=== PATIENT | female | born 1965 | race Caucasian/White ===

== ENCOUNTER 2018-07-14 08:11 | Emergency (ER) | payer OTHER ==
[~2018-07-14] VITALS: Ht 170.2 cm; Wt 88.5 kg
[2018-07-14] MEDS ORDERED: KETOROLAC 60 MG/2 ML VIAL. IM ONE (08:30)
--- NOTE | 2018-07-14 08:41 | PHYS DOC ---
Past History Past Medical History: Arthritis, Diabetes, High Cholesterol, Hypertension Past Surgical History: Tubal ligation Smoking: Non-smoker Alcohol Use: None Drug Use: None Adult General Chief Complaint Chief Complaint: SHOULDER INJURY HPI HPI Patient is a 53 year old right-handed female who presents with complaining of right shoulder pain. Patient states she woke up at 2:30 because of pain in posterior of upper back and shoulders with radiation to right chest as a constant sharp pain and rated her pain 7/10. Patient denies change of pain with movement of her shoulder, recent injury, history of the same pain, shortness of breath, nausea and vomiting, recent immobilization. Patient complaining of right hand numbness without weakness. Review of Systems Review of Systems Constitutional: Denies fever or chills [] Eyes: Denies change in visual acuity, redness, or eye pain [] HENT: Denies nasal congestion or sore throat [] Respiratory: Denies cough or shortness of breath [] Cardiovascular: No additional information not addressed in HPI [] GI: Denies abdominal pain, nausea, vomiting, bloody stools or diarrhea [] : Denies dysuria or hematuria [] Musculoskeletal: Denies back pain, reports joint pain [] Integument: Denies rash or skin lesions [] Neurologic: Denies headache, focal weakness or sensory changes [] Endocrine: Denies polyuria or polydipsia [] All other systems were reviewed and found to be within normal limits, except as documented in this note. Current Medications Current Medications Current Medications Medications (Trade) Dose Ordered Sig/[facility] Start Time Stop Time Status Last Admin Dose Admin Ketorolac Tromethamine (Toradol Im) 60 mg 1X ONCE 07/14/18 08:30 07/14/18 08:31 UNV Physical Exam Physical Exam Constitutional: Well developed, well nourished, moderate distress, non-toxic appearance. [] HENT: Normocephalic, atraumatic. Eyes: PERRLA, EOMI, conjunctiva normal, no discharge. [] Neck: Normal range of motion, no tenderness, supple, no stridor. [] Cardiovascular:Heart rate regular rhythm, no murmur [] Lungs & Thorax: Bilateral breath sounds clear to auscultation [] Skin: Warm, dry, no erythema, no rash. [] Back: No tenderness, no CVA tenderness. [] Extremities: Right shoulder without deformity, edema, tenderness, normal range of motion, no neurovascular deficit, no cyanosis, no clubbing, ROM intact, no edema. [] Neurologic: Alert and oriented X 3, normal motor function, normal sensory function, no focal deficits noted. [] Psychologic: Affect normal, judgement normal, mood normal. [] EKG EKG KG interpreted by me. EKG at 0 834 showed normal sinus rhythm at rate of 82, incomplete right bundle branch block, no acute ST and T-wave abnormalities. Radiology/Procedures Radiology/Procedures [place] [id number] IMAGING REPORT Signed PATIENT: KAI NIELSEN ACCOUNT: [id number] : 1965 LOCATION: ER AGE: 53 SEX: F EXAM STATUS: REG ER ORD. PHYSICIAN: SHIRA MCCARTY MD REASON: pain PROCEDURE: CHEST AP ONLY Examination: CHEST AP ONLY History: chest pain right side 1 day Comparison/Correlation: None Findings: PA upright frontal view chest was obtained. Heart size and pulmonary vasculature are normal. No infiltrate or effusion. No pneumothorax. Bony structures are intact. Impression: No active disease. Electronically signed by: Gaurav Sultana MD (07/14/2018 9:02 AM) [facility] DICTATED AND SIGNED BY: GAURAV SULTANA MD DATE: 07/14/18 0855 CC: SHIRA MCCARTY MD; NON,STAFF ~ [address] [address] IMAGING REPORT Signed PATIENT: KAI NIELSEN ACCOUNT: [id number] : 1965 LOCATION: ER AGE: 53 SEX: F EXAM STATUS: REG ER ORD. PHYSICIAN: SHIRA MCCARTY MD REASON: pain PROCEDURE: SHOULDER 2+V RIGHT Right shoulder, 3 views, 07/14/2017: HISTORY: Shoulder pain No fracture or dislocation is identified. The periarticular soft tissues are unremarkable. IMPRESSION: No acute bony abnormality is detected. Electronically signed by: Tommy Alatorre MD (07/14/2018 9:10 AM) [facility] DICTATED AND SIGNED BY: TOMMY ALATORRE MD DATE: 07/14/18 0909 CC: SHIRA MCCRATY MD; NON,STAFF ~ Course & Med Decision Making Course & Med Decision Making Pertinent Labs and Imaging studies reviewed. (See chart for details) Evaluation of patient in ER showed 53-year-old male patient with complaining of right neck and shoulder pain since this morning. Patient had multiple cardiac risk factor and was evaluated for PE and cardiac event with unremarkable test results. X-ray of shoulder did not show acute finding. Patient treated with Toradol, fentanyl and Norflex with improvement of her pain. Plan to discharge patient home with diagnosis of musculoskeletal shoulder pain. Dragon Disclaimer Dragon Disclaimer This electronic medical record was generated, in whole or in part, using a voice recognition dictation system. Departure Departure: Impression: Primary Impression: Strain of right levator scapulae muscle Disposition: HOME, SELF-CARE (At 0940) Condition: IMPROVED Referrals: NON,STAFF (PCP) Patient Instructions: Shoulder Sprain Additional Instructions: Apply ice on the affected area Follow-up with your primary care physician in 3-5 days Return to ER if not getting better Scripts Hydrocodone Bit/Acetaminophen (NORCO 5-325 TABLET) 1 Each Tablet 1 TAB PO PRN Q6HRS PRN for PAIN, #14 TAB 0 Refills Prov: SHIRA MCCARTY MD 07/14/18 Cyclobenzaprine Hcl (CYCLOBENZAPRINE HCL) 10 Mg Tablet 1 TAB PO TID for pain, #30 TAB Prov: SHIRA MCCARTY MD 07/14/18 SHIRA MCCARTY MD Jul 14, 2018 08:41
[2018-07-14] MEDS ORDERED: KETOROLAC 30 MG/ML VIAL. IV ONE (08:45)
[2018-07-14 08:57] LABS: BASO # 0.1 x10^3/uL (0.0-0.2); BASO % 1 % (0-3); EOS # 0.1 x10^3/uL (0.0-0.7); EOS % 1 % (0-3); HEMATOCRIT 39.9 % (36.0-47.0); HEMOGLOBIN 13.4 g/dL (12.0-15.5); LYMPH # 1.6 x10^3/uL (1.0-4.8); LYMPH % 22 % (24-48); MEAN CORPUSCULAR HEMOGLOBIN 29 pg (25-35); MEAN CORPUSCULAR HGB CONC 34 g/dL (31-37); MEAN CORPUSCULAR VOLUME 87 fL (79-100); MONO # 0.5 x10^3/uL (0.0-1.1); MONO % 7 % (0-9); NEUT # 5.1 x10^3uL (1.8-7.7); NEUT % 69 % (31-73); PLATELET COUNT 300 x10^3/uL (140-400); RED BLOOD COUNT 4.61 x10^6/uL (3.50-5.40); RED CELL DISTRIBUTION WIDTH 13.6 % (11.5-14.5); WHITE BLOOD COUNT 7.4 x10^3/uL (4.0-11.0)
--- NOTE | 2018-07-14 09:06 | RAD ---
Examination: CHEST AP ONLY History: chest pain right side 1 day Comparison/Correlation: None Findings: PA upright frontal view chest was obtained. Heart size and pulmonary vasculature are normal. No infiltrate or effusion. No pneumothorax. Bony structures are intact. Impression: No active disease. Electronically signed by: Gaurav Wood MD (07/14/2018 9:02 AM) [facility]
[2018-07-14 09:11] LABS: ALBUMIN 4.1 g/dL (3.4-5.0); ALBUMIN/GLOBULIN RATIO 1.2 (1.0-1.7); GFR 58.2; POTASSIUM 4.5 mmol/L (3.5-5.1); TOTAL BILIRUBIN 0.3 mg/dL (0.2-1.0); TOTAL PROTEIN 7.5 g/dL (6.4-8.2)
--- NOTE | 2018-07-14 09:14 | RAD ---
Right shoulder, 3 views, 07/14/2017: HISTORY: Shoulder pain No fracture or dislocation is identified. The periarticular soft tissues are unremarkable. IMPRESSION: No acute bony abnormality is detected. Electronically signed by: Tommy Alatorre MD (07/14/2018 9:10 AM) [facility]
[2018-07-14] MEDS ORDERED: HYDR-3165 PO (09:35)
[2018-07-14] MEDS ORDERED: CYCL-331 PO (09:35)
[2018-07-14] MEDS ORDERED: ORPHENADRINE CITRATE 60 MG/2 ML VIAL. IV ONE (09:45)
[2018-07-14 10:05] VITALS: BP 138/81
--- NOTE | 2018-07-14 20:56 | EKG ---
[address] [address] Test Date: 2018-07-14 Test Time: 08:34:43 Pat Name: KAI NIELSEN Department: Room: Gender: F [employer]: MICA : 1965 Requested By: SHIRA MCCARTY Order Number: [id number] Reading MD: Tristian Block Measurements Intervals [place] Rate: 82 P: 39 NC: 140 QRS: 49 QRSD: 96 T: 56 QT: 390 QTc: 459 Interpretive Statements SINUS RHYTHM INCOMPLETE RIGHT BUNDLE BRANCH BLOCK Electronically Signed On 07-17-2018 17:17:25 [employer] OFFIC[employer] by Tristian Block
== END 2018-07-14 10:05 | disposition home or self-care (01) ==
LOC: ER 08:11
DX: S46.811A Strain of other muscles, fascia and tendons at shoulder and upper arm level, right arm, initial encounter (principal); M54.6 Pain in thoracic spine; R07.89 Other chest pain; M19.90 Unspecified osteoarthritis, unspecified site; E11.9 Type 2 diabetes mellitus without complications; E78.00 Pure hypercholesterolemia, unspecified; I10 Essential (primary) hypertension; X58.XXXA Exposure to other specified factors, initial encounter; Y93.89 Activity, other specified; Y92.89 Other specified places as the place of occurrence of the external cause; Y99.8 Other external cause status
CPT/HCPCS: 36415; 71045; 73030; 80053; 82550; 84484; 85025; 85379; 93005; 96374; 96375; 99284; J1885; J2360; J3010

== ENCOUNTER 2019-06-03 16:21 | Inpatient (IN) | payer OTHER ==
[~2019-06-03] VITALS: Ht 170.2 cm; Wt 89.9 kg
[~2019-06-03 16:21] MED LIST: CYCL-331 PO; HYDR-3165 PO
[2019-06-03] MEDS ORDERED: IV NORMAL SALINE 1,000ML 1,000 ML IV SCH (16:37)
[2019-06-03] MEDS ORDERED: ONDANSETRON PF 4 MG/2 ML VIAL. IVP ONE (16:45)
[2019-06-03] MEDS ORDERED: IOHEXOL 300 MG/ML 75 ML VIAL. IV ONE (16:45)
--- NOTE | 2019-06-03 16:49 | PHYS DOC ---
Past History Past Medical History: Arthritis, Diabetes, High Cholesterol, Hypertension (KHANH BAIG DO) Past Surgical History: Tubal ligation Additional Past Surgical Histo: uterine ablation, shoulder surgery, nerve ablation in back (KHANH BAIG DO) Smoking: Non-smoker Alcohol Use: None Drug Use: None (KHANH BAIG DO) Adult General Chief Complaint Chief Complaint: ABDOMINAL PAIN HPI HPI Patient is a 54-year-old female presents complaining of left-sided abdominal pain. This started more midline but slowly migrated to the left side. Pain has gotten worse since last night. Became significantly more intense at around 11:00 this morning. No relief with acetaminophen and Dulcolax. No nausea no vomiting. No blood in the stool. No dysuria or hematuria. No vaginal bleeding or discharge. Patient is a type II diabetic, performs intermittent fasting, and during her open window to eat last night had a salad with nuts on it, prior to the onset of the discomfort. There is no radiation of the discomfort. Discomfort is moderate to severe. Increased pain with movement. She reports having a colonoscopy several weeks ago, they noted diverticular disease, no evidence of diverticulitis at that time.[] (KHANH BAIG DO) Review of Systems Review of Systems Constitutional: Denies fever or chills [] Eyes: Denies change in visual acuity, redness, or eye pain [] HENT: Denies nasal congestion or sore throat [] Respiratory: Denies cough or shortness of breath [] Cardiovascular: No chest pain or palpitations[] GI: See history of present illness[] : Denies dysuria or hematuria [] Musculoskeletal: Denies back pain or joint pain [] Integument: Denies rash or skin lesions [] Neurologic: Denies headache, focal weakness or sensory changes [] Endocrine: Denies polyuria or polydipsia [] All other systems were reviewed and found to be within normal limits, except as documented in this note. (KHANH BIAG DO) Current Medications Current Medications Current Medications Medications (Trade) Dose Ordered Sig/[facility] Start Time Stop Time Status Last Admin Dose Admin Fentanyl Citrate (Fentanyl 2ml Vial) 50 mcg PRN Q15MIN PRN 06/03/19 16:45 06/04/19 16:44 Ondansetron HCl (Zofran) 4 mg 1X ONCE 06/03/19 16:45 06/03/19 16:46 UNV Sodium Chloride 1,000 ml @ 1,000 mls/hr Q1H 06/03/19 16:37 06/03/19 17:36 UNV ([facility]) Allergies Allergies Allergies Coded Allergies Type Severity Reaction Last Updated Verified codeine Allergy Intermediate gi 07/14/18 Yes ([facility]) Physical Exam Physical Exam Constitutional: Well developed, well nourished, moderate discomfort, non-toxic appearance. [] HENT: Normocephalic, atraumatic, bilateral external ears normal, oropharynx moist, no oral exudates, nose normal. [] Eyes: PERRLA, EOMI, conjunctiva normal, no discharge. [] Neck: Normal range of motion, no tenderness, supple, no stridor. [] Cardiovascular:Heart rate tachycardic with a regular rhythm, no murmur [] Lungs & Thorax: Bilateral breath sounds clear to auscultation [] Abdomen: Bowel sounds normal, soft, left-sided tenderness to palpation, increased pain with sitting up., no masses, no pulsatile masses. [] Skin: Warm, dry, no erythema, no rash. [] Back: No tenderness, no CVA tenderness. [] Extremities: No tenderness, no cyanosis, no clubbing, ROM intact, no edema. [] Neurologic: Alert and oriented X 3, normal motor function, normal sensory function, no focal deficits noted. [] Psychologic: Affect normal, judgement normal, mood normal. [] ([facility]) Current Patient Data Lab Results Laboratory Tests Test 06/03/19 16:33 POC Urine HCG, Qualitative hcg negative (Negative) ([facility]) EKG EKG [] ([facility]) Radiology/Procedures Radiology/Procedures PROCEDURE: CT ABD PELV W/ IV CONTRST ONLY Study: CT abdomen/pelvis with intravenous contrast Indication: Left-sided abdominal pain. Comparison: None. Technique: Helical CT imaging performed of the abdomen and pelvis after the intravenous administration of 75 cc Omnipaque 300 contrast. Sagittal and coronal reformats were obtained. One or more of the following individualized dose reduction techniques were utilized for this examination: 1. Automated exposure control 2. Adjustment of the mA and/or kV according to patient size 3. Use of iterative reconstruction technique. Findings: Hepatic steatosis. Nonobstructing intrarenal stone on the right at the mid aspect of the kidney measuring 2.5 mm. Unremarkable left kidney. Unremarkable gallbladder, pancreas, spleen and adrenal glands. The urinary bladder is mostly collapsed. Rounded 1.9 cm hyperattenuating mass off the anterior aspect of the lower uterine body most compatible with a fibroid. No suspicious adnexal abnormality. Colonic diverticulosis with diverticulitis involving the junction between the descending and sigmoid colon, image 57 series 2. Extensive surrounding inflammatory changes in correspondingly there is a small amount of free fluid within the deep pelvis. No complicating features such as free air or abscess formation. Mild volume well-formed stool mostly distributed throughout the proximal half of the colon. The appendix is normal. Nonobstructed small bowel. Mild air and fluid distention of small bowel loops within the lower abdomen and pelvis could represent a mild reactive ileus. The stomach is incompletely evaluated due to partial collapse and lack of oral contrast but is without discrete abnormality. Unremarkable major vascular structures. No lymphadenopathy. Degenerative lumbar levocurvature with the apex at L3-L4. Severe disc space collapse lateralized to the right at L3-L4 and mostly lateralized to the left at L4-L5 with marked endplate sclerosis as well as endplate cystic changes. Disc osteophyte complex at L3-L4 with probable mild central canal stenosis but with narrowing of the right lateral recess. Facet degeneration is most pronounced on the left at L4-L5 where there is severe bony neural foraminal encroachment. Less pronounced bony neural foraminal encroachment on the right at L3-L4. Impression: 1. Colonic diverticulosis complicated by diverticulitis at the junction between the descending and sigmoid colon. Extensive surrounding inflammatory changes and a small amount of free pelvic fluid however there is no perforation or abscess formation. 2. Hepatic steatosis. 3. Nonobstructing intrarenal stone on the right measuring 2.5 mm. 4. Advanced discogenic arthrosis at L3-L4 and L4-L5. In conjunction with facet degeneration, severe osseous neural foraminal encroachment on the left at L4-L5. Mild appearing central canal stenosis at L3-L4 as well as right lateral recess stenosis.[] (KHANH BAIG DO) Course & Med Decision Making Course & Med Decision Making Pertinent Labs and Imaging studies reviewed. (See chart for details) Urgency department course: Patient arrived, was placed in bed, and tolerated exam well. She was given IV fluids as well as pain medicine which improved her discomfort as well as her heart rate. She was transported to and from radiology with any complications. After return of the imaging findings, these were discussed with the patient who voiced understanding. Options to include admission versus discharge were discussed with the patient. She chooses to go home and take oral pain medicine, antiemetics, and antibiotics. All questions were answered. She was discharged in improved condition. Medical decision making: Patient appears to have diverticulitis without evidence of obstruction or perforation. No evidence of oral intake intolerance. No evidence of significant electrolyte abnormality.[] (KHANH BAIG DO) Course & Med Decision Making The patient wanted to go home, but she was still having quite a bit of pain and was feeling not well. Her blood pressure was elevated due to her discomfort. We gave her 0.2 of clonidine and I talked with the patient. I told her that we'll be in her best interest to be admitted. 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 I reassured her that the business would keep running with her. She then agreed to admission for further antibiotics and pain control. I spoke with Dr. Haque and he accepted her for admission. (ANETA JAIMES DO) Dragon Disclaimer Dragon Disclaimer This electronic medical record was generated, in whole or in part, using a voice recognition dictation system. (KHANH BAIG DO) Departure Departure: Impression: Primary Impression: Diverticulitis Disposition: ADMITTED INPATIENT Condition: STABLE Referrals: PCP,UNKNOWN (PCP) Patient Instructions: Diverticulitis Additional Instructions: Follow up with your regular doctor in 2 days. Do not eat any more nuts, seeds, or popcorn. Return to the ER if unable to tolerate liquids, pain out of control, blood in stool or emesis, or any other concerns. KHANH BAIG DO Jun 03, 2019 16:49 ANETA JAIMES DO Jun 03, 2019 19:45
[2019-06-03 16:53] LABS: BASO % 0 % (0-3); EOS % 0 % (0-3); HEMATOCRIT 39.2 % (36.0-47.0); LYMPH # 2.2 x10^3/uL (1.0-4.8); LYMPH % 14 % (24-48); MEAN CORPUSCULAR HEMOGLOBIN 29 pg (25-35); MEAN CORPUSCULAR HGB CONC 33 g/dL (31-37); MEAN CORPUSCULAR VOLUME 87 fL (79-100); MONO % 6 % (0-9); NEUT # 12.4 x10^3uL (1.8-7.7); NEUT % 79 % (31-73); PLATELET COUNT 305 x10^3/uL (140-400); RED BLOOD COUNT 4.52 x10^6/uL (3.50-5.40); RED CELL DISTRIBUTION WIDTH 13.2 % (11.5-14.5); WHITE BLOOD COUNT 15.6 x10^3/uL (4.0-11.0)
[2019-06-03 17:02] LABS: BACTERIA,URINE 0 /HPF (0-FEW); BILIRUBIN,URINE NEG (NEG); CLARITY,URINE CLEAR; COLOR,URINE STRAW; GLUCOSE,URINE NEG (NEG); NITRITE,URINE NEG (NEG); RBC,URINE 0 /HPF (0-2); SQUAMOUS EPITHELIAL CELL,UR MOD /LPF; UROBILINOGEN,URINE 0.2 mg/dL (0.2 mg/dL); WBC,URINE 0 /HPF (0-4)
[2019-06-03 17:03] LABS: ALBUMIN 4.3 g/dL (3.4-5.0); ALBUMIN/GLOBULIN RATIO 1.2 (1.0-1.7); CALCIUM 9.6 mg/dL (8.5-10.1); CREATININE 0.9 mg/dL (0.6-1.0); GFR 65.5; POTASSIUM 4.1 mmol/L (3.5-5.1); TOTAL BILIRUBIN 0.5 mg/dL (0.2-1.0); TOTAL PROTEIN 7.9 g/dL (6.4-8.2)
--- NOTE | 2019-06-03 17:54 | RAD ---
Study: CT abdomen/pelvis with intravenous contrast Indication: Left-sided abdominal pain. Comparison: None. Technique: Helical CT imaging performed of the abdomen and pelvis after the intravenous administration of 75 cc Omnipaque 300 contrast. Sagittal and coronal reformats were obtained. One or more of the following individualized dose reduction techniques were utilized for this examination: 1. Automated exposure control 2. Adjustment of the mA and/or kV according to patient size 3. Use of iterative reconstruction technique. Findings: Hepatic steatosis. Nonobstructing intrarenal stone on the right at the mid aspect of the kidney measuring 2.5 mm. Unremarkable left kidney. Unremarkable gallbladder, pancreas, spleen and adrenal glands. The urinary bladder is mostly collapsed. Rounded 1.9 cm hyperattenuating mass off the anterior aspect of the lower uterine body most compatible with a fibroid. No suspicious adnexal abnormality. Colonic diverticulosis with diverticulitis involving the junction between the descending and sigmoid colon, image 57 series 2. Extensive surrounding inflammatory changes in correspondingly there is a small amount of free fluid within the deep pelvis. No complicating features such as free air or abscess formation. Mild volume well-formed stool mostly distributed throughout the proximal half of the colon. The appendix is normal. Nonobstructed small bowel. Mild air and fluid distention of small bowel loops within the lower abdomen and pelvis could represent a mild reactive ileus. The stomach is incompletely evaluated due to partial collapse and lack of oral contrast but is without discrete abnormality. Unremarkable major vascular structures. No lymphadenopathy. Degenerative lumbar levocurvature with the apex at L3-L4. Severe disc space collapse lateralized to the right at L3-L4 and mostly lateralized to the left at L4-L5 with marked endplate sclerosis as well as endplate cystic changes. Disc osteophyte complex at L3-L4 with probable mild central canal stenosis but with narrowing of the right lateral recess. Facet degeneration is most pronounced on the left at L4-L5 where there is severe bony neural foraminal encroachment. Less pronounced bony neural foraminal encroachment on the right at L3-L4. Impression: 1. Colonic diverticulosis complicated by diverticulitis at the junction between the descending and sigmoid colon. Extensive surrounding inflammatory changes and a small amount of free pelvic fluid however there is no perforation or abscess formation. 2. Hepatic steatosis. 3. Nonobstructing intrarenal stone on the right measuring 2.5 mm. 4. Advanced discogenic arthrosis at L3-L4 and L4-L5. In conjunction with facet degeneration, severe osseous neural foraminal encroachment on the left at L4-L5. Mild appearing central canal stenosis at L3-L4 as well as right lateral recess stenosis. Electronically signed by: JODI VERNON MD (06/03/2019 5:51 PM) [facility]
[2019-06-03] MEDS ORDERED: SULF1TAB24 PO (18:08)
[2019-06-03] MEDS ORDERED: METR-34 PO (18:08)
[2019-06-03] MEDS ORDERED: MELO7.5T29 PO (18:08)
[2019-06-03] MEDS ORDERED: ONDA4TAB7 PO (18:08)
[2019-06-03] MEDS ORDERED: HYDR-3165 PO (18:08)
[2019-06-03] MEDS ORDERED: HYDROcodone/APAP 5/325MG 1 TAB TABLET PO ONE (18:15)
[2019-06-03] MEDS ORDERED: metroNIDAZOLE 500 MG TABLET PO ONE (18:15)
[2019-06-03] MEDS ORDERED: SMZ/TMP 800/160MG TABLET. PO ONE (18:15)
[2019-06-03] MEDS ORDERED: IBUPROFEN 600 MG TABLET. PO ONE (18:15)
[2019-06-03] MEDS ORDERED: ONDANSETRON ODT 4 MG TAB.RAPDIS PO ONE (18:15)
[2019-06-03] MEDS ORDERED: METOCLOPRAMIDE HCL 10 MG/2 ML VIAL. IVP ONE (18:45)
[2019-06-03] MEDS ORDERED: cloNIDine HCL 0.1 MG TABLET PO ONE (18:45)
[2019-06-03] MEDS ORDERED: diphenhydrAMINE 50 MG/ML VIAL IVP ONE (18:45)
[2019-06-03] MEDS ORDERED: ONDANSETRON PF 4 MG/2 ML VIAL. IV PRN (19:15)
[2019-06-03] MEDS ORDERED: ACETAMINOPHEN 325 MG TABLET PO PRN (19:15)
[2019-06-03] MEDS ORDERED: IV NORMAL SALINE 50ML 50 ML ONE (19:28)
[2019-06-03] MEDS ORDERED: cefTRIAXone SODIUM 1 GM VIAL ONE (19:28)
[2019-06-03 20:31] VITALS: BP 96/61
[2019-06-03 23:00] VITALS: BP 120/66
[2019-06-04] MEDS: IV NORMAL SALINE 1,000ML 1,000 ML IV SCH ×2 (03:30→09:29)
[2019-06-04] MEDS ORDERED: ROSU10TA2 PO (03:42)
[2019-06-04] MEDS ORDERED: BUPR300T3 PO (03:42)
[2019-06-04] MEDS ORDERED: METF500T16 PO (03:42)
[2019-06-04] MEDS ORDERED: LOSA50TA14 PO (03:42)
--- NOTE | 2019-06-04 04:18 | NUR ---
The patient, KAI NIELSEN, 54 y/o, F admitted by JANET MOLINA MD, was given written information regarding hospital policies, unit procedures and contact persons. Valuables were checked and noted. PT presented with abdominal pain, admitted for diverticulitis. Reviewed PT's PMH, PSH, SH, FH, and medications. with PT at the time of admission.
[2019-06-04 06:04] VITALS: BP 119/76
[2019-06-04] MEDS ORDERED: buPROPion XL 300 MG TAB.ER.24H. PO SCH (09:00)
[2019-06-04] MEDS ORDERED: metFORMIN 500 MG TABLET PO SCH (09:00)
[2019-06-04 09:05] LABS: BASO % 1 % (0-3); EOS % 1 % (0-3); HEMATOCRIT 31.7 % (36.0-47.0); HEMOGLOBIN 10.4 g/dL (12.0-15.5); LYMPH # 1.2 x10^3/uL (1.0-4.8); LYMPH % 17 % (24-48); MEAN CORPUSCULAR HEMOGLOBIN 29 pg (25-35); MEAN CORPUSCULAR HGB CONC 33 g/dL (31-37); MEAN CORPUSCULAR VOLUME 87 fL (79-100); MONO # 0.5 x10^3/uL (0.0-1.1); MONO % 8 % (0-9); NEUT # 5.1 x10^3uL (1.8-7.7); NEUT % 74 % (31-73); PLATELET COUNT 209 x10^3/uL (140-400); RED BLOOD COUNT 3.64 x10^6/uL (3.50-5.40); WHITE BLOOD COUNT 6.9 x10^3/uL (4.0-11.0)
[2019-06-04 09:27] LABS: ALBUMIN 3.2 g/dL (3.4-5.0); ALBUMIN/GLOBULIN RATIO 1.1 (1.0-1.7); CREATININE 0.8 mg/dL (0.6-1.0); POTASSIUM 3.8 mmol/L (3.5-5.1); TOTAL BILIRUBIN 0.4 mg/dL (0.2-1.0); TOTAL PROTEIN 6.2 g/dL (6.4-8.2)
[2019-06-04 10:50] VITALS: BP 108/71
[2019-06-04] MEDS ORDERED: SUMAtriptan SUCCINATE 50 MG TABLET PO ONE (12:15)
[2019-06-04 14:59] VITALS: BP 133/85
--- NOTE | 2019-06-04 15:00 | NUR ---
Dr Haque here to see patient, prn fentanyl increased due to pain being 8/10. patient continues to have pain to left side of abdomen. Patient has remained on ice chips and sips of water throughout the day, tolerating well. Also complains of having a migraine that states she gets when at home. Believes it is due to not having her normal doses of caffeine.
[2019-06-04] MEDS ORDERED: DEXTROSE 50% 25 GM / 50ML DISP.SYRIN. IV PRN (16:00)
[2019-06-04] MEDS: INSULIN LISPRO 300 UNITS/3 ML VIAL. SQ SCH (16:44)
[2019-06-04] MEDS: buPROPion XL 300 MG TAB.ER.24H. PO SCH ×2 (17:00→20:53)
--- NOTE | 2019-06-04 18:17 | HP ---
ADMIT DATE: 06/03/2019 HISTORY OF PRESENT ILLNESS: The patient is a 54-year-old female patient, who came to the Emergency Room complaining of left lower quadrant pain that started about 3 days ago. The pain started in the midline, but slowly migrated to the left side. Pain has gotten worse since last night before admission, became significantly more intense at around 11 yesterday morning, no relief with acetaminophen or Dulcolax. No nausea or vomiting. No blood in the stool. No dysuria or hematuria. No vaginal bleeding or discharge. The patient is type 2 diabetic, performs intermittent fasting and during her open window to eat last night had salad, ____ prior to the onset of this discomfort. There is no radiation of discomfort. Discomfort is moderate to severe, increased pain with movement. She apparently had had colonoscopy at the beginning of April, was noted to have diverticular disease. At that time, she had no evidence of diverticulitis. She has had some polyps removed. She was evaluated in the Emergency Room, was found to have leukocytosis with a white cell count of 15,600. Has had a CT scan of the abdomen and pelvis, which basically showed that she has colonic diverticulosis, complicated by diverticulitis at the junction between the descending and sigmoid colon, extensive surrounding inflammatory changes and small amount of free pelvic fluid; however, there is no perforation or abscess formation. She has hepatic steatosis, nonobstructing intrarenal stones on the right measuring 2.5 mm. 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 She has also mild appearing central canal stenosis at L3-L4 as well as right lateral recess stenosis. She was admitted, started on IV Rocephin and clear liquid diet together with fentanyl. PAST MEDICAL HISTORY: Significant for type 2 diabetes mellitus, hypertension and hyperlipidemia. She has had also recent episode of pneumonia. PAST SURGICAL HISTORY: Significant for tubal ligation, uterine ablation, laser ablation of her lumbar spine. She underwent esophagogastroduodenoscopy and colonoscopy. ALLERGIES: She is allergic to CODEINE and LISINOPRIL. MEDICATIONS: She is currently on following medications: She is on Crestor 10 mg at bedtime, losartan potassium 50 mg at bedtime, Wellbutrin-XL 300 mg once a day, metformin 1000 mg p.o. b.i.d. FAMILY HISTORY: She has 2 brothers and 1 sister. One brother and 1 sister older and 1 brother is younger and all have diabetes. Her father at age of 66 because of pneumonia, was alcoholic. Her mom is still alive at the age of 79. SOCIAL HISTORY: She is , has 2 daughters. She never smoked, does not drink alcohol or use recreational drugs. 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 REVIEW OF SYSTEMS: The patient denied any blurring of vision, cataract, glaucoma or macular degeneration. Denied any earache, tinnitus or sensorineural deafness. Denied any nosebleeds. Denied any nausea or vomiting. She is constipated. Denied any diarrhea. Denied any hematemesis, melena or hematochezia. Denied any dysuria, frequency or hematuria. Denied any chest pain, shortness of breath, orthopnea or paroxysmal nocturnal dyspnea. PHYSICAL EXAMINATION: GENERAL: When I examined her, she looked pale, but no jaundice. She looked well and was clearly in no apparent respiratory distress. No pallor, jaundice, cyanosis or thyromegaly. No jugular venous distention. No limb edema. VITAL SIGNS: Her heart rate was 87, blood pressure 119/76, temperature was 98.2, respiratory rate was 18 and oxygen saturation was 95% on room air. HEAD, EYES, EARS, NOSE AND THROAT: Showed normocephalic, atraumatic. NECK: Supple. HEART: Showed normal first and second heart sounds. No gallop or murmur. CHEST: Clear to auscultation. No crepitation or rhonchi. ABDOMEN: Distended, soft with tenderness mostly in the left lower quadrant. There is no guarding or rigidity. No organomegaly. All hernial orifice intact. Bowel sounds normal. NEUROLOGIC: She was grossly intact. LABORATORY DATA: Lab work on admission showed a white cell count 15,600, hemoglobin 13, hematocrit 39, MCV 87, and platelet count 305,000. Her chemistry showed a serum sodium 137, potassium 4, chloride 99, bicarbonate 27, anion gap of 11, BUN 9, creatinine 0.9, estimated GFR was 65 mL per minute. Her glucose 118, calcium was 9.6. Total bilirubin, AST, ALT, alkaline phosphatase were normal. Total protein was 7.9, albumin was 4.3 and lipase was 51. Her urinalysis was essentially unremarkable. Her urine test was negative. IMAGING STUDIES: Her CT scan of the abdomen and pelvis showed that she has colonic diverticulosis, complicated by diverticulitis at the junction between the descending and sigmoid colon. Extensive surrounding inflammatory changes and small amount of free pelvic fluid; however, there is no perforation or abscess formation. PLAN: My plan is to switch her antibiotic to ciprofloxacin as well as Flagyl and change her medication to morphine and decide on further management accordingly. JANET MOLINA MD DR: ALIS/meka JOB#: [id number] / [id number]
[2019-06-04] MEDS ORDERED: diphenhydrAMINE 50 MG/ML VIAL IVP ONE (19:00)
--- NOTE | 2019-06-04 19:36 | NUR ---
Patient complained of migraine this evening, states benadryl worked. Also states she would like to advance her diet and try to eat. Soft diet ordered.
[2019-06-04 20:04] VITALS: BP 124/83
[2019-06-04] MEDS: CIPROFLOXACIN 400MG PREMIX 200 ML IV SCH (20:58)
[2019-06-04] MEDS ORDERED: LOSARTAN 50 MG TABLET. PO SCH (21:00)
[2019-06-04] MEDS ORDERED: ATORVASTATIN CALCIUM 20 MG TABLET PO SCH (21:00)
[2019-06-04 22:48] VITALS: BP 135/74
[2019-06-05 04:51] VITALS: BP 130/81
[2019-06-05] MEDS: IV NORMAL SALINE 1,000ML 1,000 ML IV SCH (06:30)
[2019-06-05 07:44] LABS: HEMATOCRIT 33.1 % (36.0-47.0); RED BLOOD COUNT 3.81 x10^6/uL (3.50-5.40); RED CELL DISTRIBUTION WIDTH 12.9 % (11.5-14.5); WHITE BLOOD COUNT 7.8 x10^3/uL (4.0-11.0)
[2019-06-05 07:51] LABS: ALBUMIN 3.2 g/dL (3.4-5.0); CALCIUM 8.2 mg/dL (8.5-10.1); CREATININE 0.8 mg/dL (0.6-1.0); POTASSIUM 3.9 mmol/L (3.5-5.1); TOTAL BILIRUBIN 0.3 mg/dL (0.2-1.0); TOTAL PROTEIN 6.5 g/dL (6.4-8.2)
[2019-06-05] MEDS ORDERED: metFORMIN 500 MG TABLET PO SCH (08:00)
[2019-06-05] MEDS: INSULIN LISPRO 300 UNITS/3 ML VIAL. SQ SCH ×2 (08:00→11:53)
[2019-06-05] MEDS: buPROPion XL 300 MG TAB.ER.24H. PO SCH (08:43)
[2019-06-05] MEDS: CIPROFLOXACIN 400MG PREMIX 200 ML IV SCH (08:44)
[2019-06-05] MEDS ORDERED: FLU VAX QS 2019-20 (36MOS+)/PF 0.5 ML SYRINGE. VAX IM ONE (09:00)
[2019-06-05] MEDS ORDERED: LACTOBACILLUS RHAMNOSUS GG 1 CAPSULE. PO SCH (09:00)
[2019-06-05 10:37] VITALS: BP 112/70
[2019-06-05] MEDS ORDERED: METR500T PO (13:20)
[2019-06-05] MEDS ORDERED: CIPR500T94 PO (13:20)
[2019-06-05] MEDS ORDERED: HYDR-2155 PO (13:21)
--- NOTE | 2019-06-05 13:48 | NUR ---
NSG NOTE; DISCHARGE VERBAL AND WRITTEN DISCHARGE INSTRUCTIONS GIVEN TO PT WITH VERBAL UNDERSTANDING WRITTEN RX X3 GIVEN TO PT DISCHARGED TO HOME AT 1345 VIA AMB ACCOMP BY FAMILY
--- NOTE | 2019-06-05 14:55 | DS ---
DATE OF DISCHARGE: 06/05/2019 HOSPITAL COURSE: The patient is a 54-year-old female patient who was admitted with a complaint of left lower quadrant pain. She was extensively evaluated in the Emergency Room, was found to have acute sigmoid diverticulitis at the junction between the descending and sigmoid colon with extensive surrounding inflammatory changes with small amount of free pelvic fluid; however, there is no perforation or abscess formation. She was started on IV Cipro and Flagyl and she did very well. Her white cell count came down nicely. She has had no further pain, no nausea, no vomiting, has been tolerating her diet and decision was made to discharge her home to continue with oral antibiotic. PHYSICAL EXAMINATION: GENERAL: When I examined her, she looked pale, no jaundice, cyanosis or thyromegaly. No jugular venous distention. No lower limb edema. VITAL SIGNS: Her heart rate was 78, blood pressure was 112/70, temperature 97.4, respiratory rate 12 and oxygen saturation was 96%. HEAD, EYES, EARS, NOSE AND THROAT: Normocephalic, atraumatic. NECK: Supple. HEART: Normal first and second heart sounds. No gallop or murmur. CHEST: Clear to auscultation. No crepitation or rhonchi. ABDOMEN: Distended, soft, nontender. NEUROLOGIC: She is awake, alert, responding appropriately. All her cranial nerves intact. EXTREMITIES: She moves extremities without difficulty. She ambulates without assistance or assistive devices. LABORATORY DATA: Showed a white cell count is 7800, hemoglobin 11, hematocrit 33, MCV 87, and platelet count 139,000. Her chemistry showed a serum sodium 140, potassium 3.9, chloride 105, bicarbonate 23, anion gap of 12, BUN 6, creatinine 0.8, estimated GFR was 75 mL per minute. Her glucose 123, calcium was 8.2. Total bilirubin, AST, ALT, alkaline phosphatase were normal. Total protein was 6.5, albumin was 3.2. Urinalysis was unremarkable. DISCHARGE MEDICATIONS: The patient was discharged home to continue on ciprofloxacin 500 mg twice a day for 7 days and Flagyl 500 mg 3 times a day for 7 days. She was also discharged on hydrocodone/APAP 5/325 one tablet every 6 hours as needed, Wellbutrin-XL 300 mg once a day, losartan potassium 50 mg at bedtime, metformin 500 mg twice a day, Crestor 10 mg at bedtime. FINAL DISCHARGE DIAGNOSES: Acute sigmoid diverticulitis, resolving. Other medical problems include type 2 diabetes, hypertension, hyperlipidemia. JANET MOLINA MD DR: ALIS/meka JOB#: [id number] / [id number]
== END 2019-06-05 13:45 | disposition home or self-care (01) | DRG 392 ==
LOC: ER 16:21 → 1 SOUTH 19:00 → ER 20:15
PROVIDERS: ADMIT Internal Medicine; ATTEND Internal Medicine
DX: K57.32 Diverticulitis of large intestine without perforation or abscess without bleeding (principal); R65.10 Systemic inflammatory response syndrome (SIRS) of non-infectious origin without acute organ dysfunction; E11.9 Type 2 diabetes mellitus without complications; E78.00 Pure hypercholesterolemia, unspecified; E78.5 Hyperlipidemia, unspecified; I10 Essential (primary) hypertension; M19.90 Unspecified osteoarthritis, unspecified site; M48.061 Spinal stenosis, lumbar region without neurogenic claudication; N20.0 Calculus of kidney; Z83.3 Family history of diabetes mellitus; Z98.51 Tubal ligation status; Z79.899 Other long term (current) drug therapy; Z88.8 Allergy status to other drugs, medicaments and biological substances
CPT/HCPCS: 36415; 74177; 80053; 81001; 81025; 82947; 83690; 85025; 85027; 90471; 90686; 96361; 96365; 96375; J0696; J0744; J1200; J1815; J2405; J2765; J3010; J3490; Q0162; Q9967; 99285-25; J7030

== ENCOUNTER 2021-11-12 08:47 | Emergency (ER) | payer OTHER ==
[~2021-11-12] VITALS: Ht 170.2 cm; Wt 92.5 kg
[~2021-11-12 08:47] MED LIST changes: +BUPR300T3 PO; +CIPR500T94 PO; -CYCL-331 PO; +CYCL10TA19 PO; +HYDR-2155 PO; +LOSA50TA14 PO; +MELO7.5T29 PO; +METF500T16 PO; +METR-34 PO; +METR500T PO; +ONDA4TAB7 PO; +ROSU10TA2 PO; +SULF1TAB24 PO
--- NOTE | 2021-11-12 09:10 | PHYS DOC ---
Past History Past Medical History: Diabetes, Hypertension Past Surgical History: Tubal ligation Additional Past Surgical Histo: uterine ablation, shoulder surgery, nerve ablation in back Smoking: Non-smoker Alcohol Use: None Drug Use: None General Adult EDM: Chief Complaint: ABDOMINAL PAIN HPI: HPI: 56-year-old female presents with right-sided abdominal pain. The patient started the pain last night. It subsided for the most part and so she was able to sleep. This morning, the pain has returned. She describes it as a cramping/twisting pain in her right flank. It is an 8 out of 10. Patient has a history of diverticulitis. She has never had a kidney stone. She denies dysuria or increased urinary frequency. The patient has been feeling generally under the weather for another 24 hours before this and has not been eating. She has been trying to stay hydrated. She has type 2 diabetes. Blood sugars under 200. She denies fever or chills. Review of Systems: Review of Systems: Constitutional: Denies fever or chills Eyes: Denies change in visual acuity HENT: Denies nasal congestion or sore throat Respiratory: Denies cough or shortness of breath Cardiovascular: Denies chest pain or edema GI: Right-sided abdominal pain, nausea. Denies vomiting, bloody stools or diarrhea : Denies dysuria Musculoskeletal: Denies back pain or joint pain Integument: Denies rash Neurologic: Denies headache, focal weakness or sensory changes Endocrine: Denies polyuria or polydipsia Lymphatic: Denies swollen glands Psychiatric: Denies depression or anxiety Current Medications: Current Meds: Current Medications Medications (Trade) Dose Ordered Sig/Divina Start Time Stop Time Status Last Admin Dose Admin Iohexol (Omnipaque 300 Mg/ml) 75 ml 1X ONCE 11/12/21 09:15 11/12/21 09:16 UNV Morphine Sulfate (Morphine 4mg Syringe) 4 mg 1X ONCE 11/12/21 09:15 11/12/21 09:16 UNV Ondansetron HCl (Zofran) 4 mg 1X ONCE 11/12/21 09:15 11/12/21 09:16 UNV Allergies: Allergies: Allergies Coded Allergies Type Severity Reaction Last Updated Verified codeine Allergy Intermediate gi 07/14/18 Yes Physical Exam: PE: Constitutional: Well developed, well nourished, obese, no acute distress, non- toxic appearance. [] HENT: Normocephalic, atraumatic, bilateral external ears normal, oropharynx moist, no oral exudates, nose normal. [] Eyes: PERRLA, EOMI, conjunctiva normal, no discharge. [] Neck: Normal range of motion, no tenderness, supple, no stridor. [] Cardiovascular: Heart rate regular rhythm, no murmur [] Lungs & Thorax: Bilateral breath sounds clear to auscultation [] Abdomen: Bowel sounds normal, soft, no tenderness, no masses, no pulsatile masses. [] Skin: Warm, dry, no erythema, no rash. [] Back: No tenderness, right CVA tenderness. [] Extremities: No tenderness, no cyanosis, no clubbing, ROM intact, no edema. [] Neurologic: Alert and oriented X 3, normal motor function, normal sensory function, no focal deficits noted. [] Psychologic: Affect normal, judgement normal, mood normal. [] EKG: EKG: [] Radiology/Procedures: Radiology/Procedures: [] Impressions: CT ABDOMEN+PELVIS W History: RUQ pain RADIATES TO BACK. Comparison: 06/03/2019 Technique: After administration of intravenous contrast, helical CT of the abdomen and pelvis was performed from the lung bases through the ischial tuberosities. Coronal and sagittal reconstructions were obtained. 60 mL of Omni paque 350 were used. One or more of the following dose reduction techniques were utilized: Automated exposure control (AEC), Adjustment of mA and/or kV according to patient size, Use of iterative reconstruction technique such as ASiR, CT scan done according to ALARA and image gently/image wisely Abdomen Findings: The visualized lung bases are clear. Diffuse hepatic steatosis. The gallbladder, pancreas, spleen, and bilateral adrenal glands are normal. Symmetric renal enhancement. Nonobstructive right renal 5 mm calculus. There is no hydronephrosis. The visualized loops of small bowel are normal. Extensive colonic diverticulos is, with mild pericolic inflammation along the mid descending colon (series 2 images 39-44). There is no evidence of bowel obstruction. Appendix is normal. There is no mesenteric or retroperitoneal adenopathy. The abdominal aorta is normal in caliber. Pelvis Findings: Urinary bladder is decompressed. Uterus is present. No pelvic free fluid. There is no pelvic or inguinal adenopathy. Degenerative changes of the spine, with severe degenerative disc disease at L3-4 on the right and L4-5 on the left. Mild left convex lumbar curvature. IMPRESSION: 1. Colonic diverticulosis with mild pericolic inflammation along the mid desce nding colon, which may represent acute diverticulitis. No fluid collection or free air. 2. Nonobstructive right renal 5 mm calculus. 3. Hepatic steatosis. Electronically signed by: Jurgen Dill MD (11/12/2021 10:30 AM) [id number] DICTATED AND SIGNED BY: JURGEN DILL MD DATE: 11/12/21 1022 CC: ERINN JI; ANETA JAIMES DO ~ Heart Score: C/O Chest Pain: N/A Risk Factors: Risk Factors: DM, Current or recent (<one month) smoker, HTN, HLP, family history of CAD, obesity. Risk Scores: Score 0 - 3: 2.5% MACE over next 6 weeks - Discharge Home Score 4 - 6: 20.3% MACE over next 6 weeks - Admit for Clinical Observation Score 7 - 10: 72.7% MACE over next 6 weeks - Early Invasive Strategies Course & Med Decision Making: Course & Med Decision Making Pertinent Labs and Imaging studies reviewed. (See chart for details) The patient's labs and urinalysis are unremarkable. I have given her morphine and Dilaudid for discomfort. She appears to have diverticulitis on CT scan. I will treat her with pain medication and Augmentin for 7 days. Recent literature has shown antibiotic treatment is not always necessary. I will leave it up to the patient if she wants to wait a day or 2 to see if her symptoms improve prior to starting her antibiotics. She is stable for discharge at this time. [] Jaqueline Disclaimer: Jaqueline Disclaimer: This electronic medical record was generated, in whole or in part, using a voice recognition dictation system. Departure Departure: Impression: Primary Impression: Acute diverticulitis Disposition: HOME / SELF CARE / HOMELESS Condition: STABLE Referrals: ERINN JI (PCP) Patient Instructions: Diverticulitis, Cxni-eb-Mete Scripts Ondansetron (ONDANSETRON ODT) 4 Mg Tab.rapdis 1 TAB PO PRN Q6-8HRS PRN for VOMITING, #16 TAB Prov: ANETA JAIMES DO 11/12/21 Hydrocodone/Acetaminophen (Hydrocodone-Acetamin 5-325 mg) 1 Each Tablet 1-2 EACH PO Q6HRS PRN for PAIN, #15 TAB Prov: ANETA JAIMES DO 11/12/21 ANETA JAIMES DO November 12, 2021 09:10
[2021-11-12] MEDS ORDERED: IOHEXOL 300 MG/ML 75 ML VIAL. IV ONE (09:15)
[2021-11-12] MEDS ORDERED: CONTRAST GIVEN. MC PRN (09:15)
[2021-11-12] MEDS ORDERED: MORPHINE SULFATE 4 MG/ML DISP.SYRIN. IV ONE (09:15)
[2021-11-12] MEDS ORDERED: ONDANSETRON PF 4 MG/2 ML VIAL. IVP ONE ×2 (09:15→11:00)
[2021-11-12 09:22] LABS: BASO % 1 % (0-3); EOS % 0 % (0-3); HEMATOCRIT 37.3 % (36.0-47.0); HEMOGLOBIN 12.3 g/dL (12.0-15.5); LYMPH # 1.7 x10^3/uL (1.0-4.8); LYMPH % 28 % (24-48); MEAN CORPUSCULAR HEMOGLOBIN 28 pg (25-35); MEAN CORPUSCULAR HGB CONC 33 g/dL (31-37); MEAN CORPUSCULAR VOLUME 84 fL (79-100); MONO # 0.7 x10^3/uL (0.0-1.1); MONO % 11 % (0-9); NEUT # 3.6 x10^3uL (1.8-7.7); NEUT % 60 % (31-73); PLATELET COUNT 302 x10^3/uL (140-400); RED BLOOD COUNT 4.43 x10^6/uL (3.50-5.40); RED CELL DISTRIBUTION WIDTH 14.3 % (11.5-14.5)
[2021-11-12 09:31] LABS: CALCIUM 9.2 mg/dL (8.5-10.1); GFR 57.6; POTASSIUM 4.1 mmol/L (3.5-5.1)
[2021-11-12 09:37] LABS: ALBUMIN 3.9 g/dL (3.4-5.0); ALBUMIN/GLOBULIN RATIO 1.1 (1.0-1.7); TOTAL BILIRUBIN 0.2 mg/dL (0.2-1.0); TOTAL PROTEIN 7.5 g/dL (6.4-8.2)
[2021-11-12 09:38] LABS: CLARITY,URINE CLEAR; COLOR,URINE YELLOW; GLUCOSE,URINE NEG (NEG)
[2021-11-12 09:39] LABS: BACTERIA,URINE FEW /HPF (0-FEW); NITRITE,URINE NEG (NEG); SQUAMOUS EPITHELIAL CELL,UR MOD /LPF; UROBILINOGEN,URINE 0.2 mg/dL (0.2 mg/dL)
[2021-11-12] MEDS ORDERED: HYDROmorphone PF 1 MG/ML DISP.SYRIN ONE (09:51)
[2021-11-12] MEDS ORDERED: HYDROmorphone PF 1 MG/ML DISP.SYRIN IVP ONE (10:00)
[2021-11-12 10:30] VITALS: BP 118/70
--- NOTE | 2021-11-12 10:33 | RAD ---
CT ABDOMEN+PELVIS W History: RUQ pain RADIATES TO BACK. Comparison: 06/03/2019 Technique: After administration of intravenous contrast, helical CT of the abdomen and pelvis was per formed from the lung bases through the ischial tuberosities. Coronal and sagittal reconstructions wer e obtained. 60 mL of Omnipaque 350 were used. One or more of the following dose reduction techniques were utilized: Automated exposure control (AEC), Adjustment of mA and/or kV according to patient size , Use of iterative reconstruction technique such as ASiR, CT scan done according to ALARA and image g ently/image wisely Abdomen Findings: The visualized lung bases are clear. Diffuse hepatic steatosis. The gallbladder, pancreas, spleen, and bilateral adrenal glands are normal . Symmetric renal enhancement. Nonobstructive right renal 5 mm calculus. There is no hydronephrosis. The visualized loops of small bowel are normal. Extensive colonic diverticulosis, with mild pericolic inflammation along the mid descending colon (series 2 images 39-44). There is no evidence of bowel o bstruction. Appendix is normal. There is no mesenteric or retroperitoneal adenopathy. The abdominal aorta is normal in caliber. Pelvis Findings: Urinary bladder is decompressed. Uterus is present. No pelvic free fluid. There is no pelvic or ingui nal adenopathy. Degenerative changes of the spine, with severe degenerative disc disease at L3-4 on the right and L4- 5 on the left. Mild left convex lumbar curvature. IMPRESSION: 1. Colonic diverticulosis with mild pericolic inflammation along the mid descending colon, which may represent acute diverticulitis. No fluid collection or free air. 2. Nonobstructive right renal 5 mm calculus. 3. Hepatic steatosis. Electronically signed by: Hari Hoang MD (11/12/2021 10:30 AM) [id number]
[2021-11-12] MEDS ORDERED: HYDR-2759 PO (10:49)
[2021-11-12] MEDS ORDERED: ONDA4TAB12 PO (10:50)
[2021-11-12] MEDS ORDERED: AMOXICILLIN/K CLAV 875/125MG TABLET. ONE (10:54)
[2021-11-12] MEDS ORDERED: HYDROcodone/APAP 7.5/325MG 1 TAB TABLET ONE (10:55)
[2021-11-12] MEDS ORDERED: HYDROcodone/APAP 7.5/325MG 1 TAB TABLET PO ONE (11:00)
[2021-11-12] MEDS ORDERED: AMOXICILLIN/K CLAV 875/125MG TABLET. PO ONE (11:00)
[2021-11-13] MEDS ORDERED: AMOX1TAB11 PO (06:08)
== END 2021-11-12 10:55 | disposition home or self-care (01) ==
LOC: ER 08:47
DX: K57.32 Diverticulitis of large intestine without perforation or abscess without bleeding (principal); E11.9 Type 2 diabetes mellitus without complications; I10 Essential (primary) hypertension; Z98.51 Tubal ligation status; Z88.5 Allergy status to narcotic agent
CPT/HCPCS: 36415; 74177; 80053; 81001; 85025; 96374; 96375; 96376; 99285; J1170; J2270; J2405; Q9967; 96361

== ENCOUNTER 2021-11-14 10:39 | Emergency (ER) | payer OTHER ==
[~2021-11-14] VITALS: Ht 170.2 cm; Wt 92.5 kg
[~2021-11-14 10:39] MED LIST changes: +AMOX1TAB11 PO; +HYDR-2759 PO; +ONDA4TAB12 PO
--- NOTE | 2021-11-14 11:06 | PHYS DOC ---
Past History Past Medical History: Diabetes, Hypertension Past Surgical History: Tubal ligation Additional Past Surgical Histo: LUMBAR NERVE ABLATION Smoking: Non-smoker Alcohol Use: None Drug Use: None General Adult EDM: Chief Complaint: ABDOMINAL PAIN HPI: HPI: Patient is a 56-year-old female coming in for right lower quadrant pain. Patient was seen for this pain 2 days ago and discharged with diverticulitis. Patient says the pain is worsening and intolerable. Says it starts in the right lower quadrant and radiates to her right flank. Denies any vomiting, urinary complaints. Patient states she has not had a bowel movement in the past few days. She has been taking hydrocodone and Augmentin. Pain states she has had multiple episodes of diverticulitis in the past, but has been less recently due to diet changes. Review of Systems: Review of Systems: All other systems within normal limits except for as noted in the HPI Allergies: Allergies: Allergies Coded Allergies Type Severity Reaction Last Updated Verified codeine Allergy Intermediate gi 11/12/21 Yes lisinopril Allergy Unknown 11/14/21 Yes Physical Exam: PE: Constitutional: Well developed, well nourished, no acute distress, non-toxic appearance. [] HENT: Normocephalic, atraumatic, bilateral external ears normal, nose normal. [ ] Eyes: PERRLA, conjunctiva normal, no discharge. [] Neck: No rigidity, supple, no stridor. [] Cardiovascular: Regular rate and rhythm, brisk cap refill [] Lungs & Thorax: Non labored symmetric respirations, no tachypnea or respiratory distress [] Abdomen: Soft, nondistended, right lower quadrant pain. Skin: Warm, dry, no erythema, no rash. [] Back: Unremarkable Extremities: No deformities, range of motion grossly intact, no lower extremity edema [] Neurologic: Alert and oriented X 3, no focal deficits noted. [] Psychologic: Affect normal, judgement normal, mood normal. [] Current Patient Data: Vital Signs: Vital Signs Date Time Temp Pulse Resp B/P (MAP) Pulse Ox O2 Delivery O2 Flow Rate FiO2 11/14/21 10:41 98.2 60 16 163/113 (130) 98 Room Air EKG: EKG: [] Radiology/Procedures: Radiology/Procedures: [address] [address] IMAGING REPORT Signed PATIENT: KAI NIELSEN ACCOUNT: [id number] : 1965 LOCATION: ER AGE: 56 SEX: F EXAM STATUS: REG ER ORD. PHYSICIAN: XI DENG MD REASON: worsening RLQ pain-given 75 ml omni 300 PROCEDURE: CT ABD PELV W/ IV CONTRST ONLY Exam: CT abdomen/pelvis with intravenous contrast Indication: Worsening right lower quadrant pain Comparison: CT abdomen pelvis 11/14/2021 Technique: Helical CT imaging performed of the abdomen and pelvis after the intravenous administration of 75 mL Omnipaque 300 contrast. Sagittal and coronal reformats were obtained. One or more of the following individualized dose reduction techniques were utilized for this examination: 1. Automated exposure control 2. Adjustment of the mA and/or kV according to patient size 3. Use of iterative reconstruction technique. Findings: Lower chest: The lung bases are clear. The heart is normal in size. Liver: The liver is normal in size. No focal liver lesion. Gallbladder/Biliary Tree: Normal. Pancreas: Normal. Spleen: Normal. Adrenal Glands: Normal. Kidneys/Ureters/Bladder: There is new mild right hydronephrosis due to a 5 mm calculus in the distal right ureter. No nephrolithiasis. The left kidney and left ureter are normal. The bladder is normal. Reproductive Organs: Uterus is anteverted. No adnexal mass. Stomach, small bowel, and colon: The stomach is normal. No small bowel obstruction. The appendix is normal. There is sigmoid diverticulosis without acute diverticulitis. Vasculature: The abdominal aorta is normal in caliber. Lymph Nodes: No lymphadenopathy. Peritoneum and retroperitoneum: No free fluid or free air. Bones: No acute fracture. There is mild lumbar scoliosis. Mild to moderate de generative disc disease at L3-L4 L4-L5. Miscellaneous: None IMPRESSION: 1. New mild right hydronephrosis due to a 5 mm calculus in the distal right ureter. No nephrolithiasis. 2. Sigmoid diverticulosis. Electronically signed by: Xi Amezcua MD (11/14/2021 11:49 AM) [id number] DICTATED AND SIGNED BY: XI AMEZCUA MD DATE: 11/14/21 7440 CC: ERINN JI; XI DENG MD ~ [] Heart Score: C/O Chest Pain: No Risk Factors: Risk Factors: DM, Current or recent (<one month) smoker, HTN, HLP, family history of CAD, obesity. Risk Scores: Score 0 - 3: 2.5% MACE over next 6 weeks - Discharge Home Score 4 - 6: 20.3% MACE over next 6 weeks - Admit for Clinical Observation Score 7 - 10: 72.7% MACE over next 6 weeks - Early Invasive Strategies Course & Med Decision Making: Course & Med Decision Making Pertinent Labs and Imaging studies reviewed. (See chart for details) Patient with her second ER visit requiring multiple doses of IV pain medications. Pain is still uncomfortable. Discussed a trial of stronger p.o. pain meds as outpatient versus transfer for pain control and urology. Patient does not feel comfortable if your pain will be controlled at home that she will Back to the emergency department. Patient be transferred to [facility], with Dr. Chen as accepting. Patient given Flomax in the emergency department. [] Dragon Disclaimer: Drageleni Disclaimer: This electronic medical record was generated, in whole or in part, using a voice recognition dictation system. Departure Departure: Impression: Primary Impression: Right renal stone Disposition: 02 SHORT TERM HOSPITAL Condition: STABLE Referrals: ERINN JI (PCP) XI DENG MD November 14, 2021 11:06
[2021-11-14] MEDS ORDERED: MORPHINE SULFATE 4 MG/ML DISP.SYRIN. ONE (11:08)
[2021-11-14] MEDS ORDERED: IOHEXOL 300 MG/ML 75 ML VIAL. ONE (11:11)
[2021-11-14 11:14] LABS: BASO % 0 % (0-3); EOS % 1 % (0-3); HEMATOCRIT 36.7 % (36.0-47.0); HEMOGLOBIN 12.1 g/dL (12.0-15.5); LYMPH # 1.6 x10^3/uL (1.0-4.8); LYMPH % 24 % (24-48); MEAN CORPUSCULAR HEMOGLOBIN 28 pg (25-35); MEAN CORPUSCULAR HGB CONC 33 g/dL (31-37); MEAN CORPUSCULAR VOLUME 85 fL (79-100); MONO # 0.4 x10^3/uL (0.0-1.1); MONO % 7 % (0-9); NEUT # 4.5 x10^3uL (1.8-7.7); NEUT % 69 % (31-73); PLATELET COUNT 296 x10^3/uL (140-400); RED BLOOD COUNT 4.33 x10^6/uL (3.50-5.40); WHITE BLOOD COUNT 6.6 x10^3/uL (4.0-11.0)
[2021-11-14] MEDS ORDERED: CONTRAST GIVEN. MC PRN (11:15)
[2021-11-14] MEDS ORDERED: MORPHINE SULFATE 4 MG/ML DISP.SYRIN. IV ONE (11:15)
[2021-11-14] MEDS ORDERED: IOHEXOL 300 MG/ML 75 ML VIAL. IV ONE (11:15)
[2021-11-14 11:20] LABS: HEMOGLOBIN ISTAT 12.2 gm/dL
[2021-11-14 11:21] LABS: ALBUMIN 3.9 g/dL (3.4-5.0); DIRECT BILIRUBIN 0.1 mg/dL (0.0-0.2); TOTAL BILIRUBIN 0.2 mg/dL (0.2-1.0); TOTAL PROTEIN 6.9 g/dL (6.4-8.2)
[2021-11-14] MEDS ORDERED: IV NORMAL SALINE 1,000ML 1,000 ML IV ONE (11:30)
--- NOTE | 2021-11-14 11:52 | RAD ---
Exam: CT abdomen/pelvis with intravenous contrast Indication: Worsening right lower quadrant pain Comparison: CT abdomen pelvis 11/14/2021 Technique: Helical CT imaging performed of the abdomen and pelvis after the intravenous administratio n of 75 mL Omnipaque 300 contrast. Sagittal and coronal reformats were obtained. One or more of the following individualized dose reduction techniques were utilized for this examinat ion: 1. Automated exposure control 2. Adjustment of the mA and/or kV according to patient size 3. Use of iterative reconstruction technique. Findings: Lower chest: The lung bases are clear. The heart is normal in size. Liver: The liver is normal in size. No focal liver lesion. Gallbladder/Biliary Tree: Normal. Pancreas: Normal. Spleen: Normal. Adrenal Glands: Normal. Kidneys/Ureters/Bladder: There is new mild right hydronephrosis due to a 5 mm calculus in the distal right ureter. No nephrolithiasis. The left kidney and left ureter are normal. The bladder is normal. Reproductive Organs: Uterus is anteverted. No adnexal mass. Stomach, small bowel, and colon: The stomach is normal. No small bowel obstruction. The appendix is n ormal. There is sigmoid diverticulosis without acute diverticulitis. Vasculature: The abdominal aorta is normal in caliber. Lymph Nodes: No lymphadenopathy. Peritoneum and retroperitoneum: No free fluid or free air. Bones: No acute fracture. There is mild lumbar scoliosis. Mild to moderate degenerative disc disease at L3-L4 L4-L5. Miscellaneous: None IMPRESSION: 1. New mild right hydronephrosis due to a 5 mm calculus in the distal right ureter. No nephrolithias is. 2. Sigmoid diverticulosis. Electronically signed by: Xi Amezcua MD (11/14/2021 11:49 AM) [id number]
[2021-11-14] MEDS ORDERED: HYDROmorphone PF 1 MG/ML DISP.SYRIN ONE (13:08)
[2021-11-14] MEDS ORDERED: TAMSULOSIN 0.4 MG CAP.ER.24H. PO ONE ×2 (13:15→13:17)
[2021-11-14] MEDS ORDERED: HYDROmorphone PF 1 MG/ML DISP.SYRIN IVP ONE (13:15)
[2021-11-14 13:22] VITALS: BP 153/82
[2021-11-14 14:20] LABS: CLARITY,URINE CLOUDY; COLOR,URINE AMBER; GLUCOSE,URINE NEG (NEG)
[2021-11-14 14:21] LABS: BACTERIA,URINE 0 /HPF (0-FEW); NITRITE,URINE NEG (NEG); RBC,URINE >40 /HPF (0-2); SQUAMOUS EPITHELIAL CELL,UR MOD /LPF; UROBILINOGEN,URINE 0.2 mg/dL (0.2 mg/dL); WBC,URINE OCC /HPF (0-4)
== END 2021-11-14 13:55 | disposition short-term general hospital (02) ==
LOC: ER 10:39
DX: N13.2 Hydronephrosis with renal and ureteral calculous obstruction (principal); E11.9 Type 2 diabetes mellitus without complications; I10 Essential (primary) hypertension; Z98.51 Tubal ligation status; Z88.5 Allergy status to narcotic agent; Z88.8 Allergy status to other drugs, medicaments and biological substances
CPT/HCPCS: 36415; 74177; 80047; 80076; 81001; 83690; 85025; 96361; 96374; 96375; 99285; J1170; J2270; J3010; J7030; Q9967